=== PATIENT | male | born 1960 | race Caucasian/White ===

== ENCOUNTER 2024-07-24 13:56 | Emergency (ER) | payer MEDICARE, OTHER ==
[2024-07-24] MEDS: Bacitracin Oint 1 GM U/D Packet TOP ONE (16:35)
[2024-07-24] MEDS: Lidocaine 1% 10 ML MDV INJECT ONE (16:35)
== END 2024-07-24 18:48 | disposition home or self-care (01) ==
LOC: JP.ED 13:56
DX: S51.011A Laceration without foreign body of right elbow, initial encounter (principal); Z91.030 Bee allergy status; Z79.890 Hormone replacement therapy; Z79.899 Other long term (current) drug therapy; W45.8XXA Other foreign body or object entering through skin, initial encounter
CPT/HCPCS: 12004; 12014; 73070; 99283; J2003